=== PATIENT | female | born 1930 | race Caucasian/White ===

== ENCOUNTER → 2018-06-10 | Outpatient (CLI) | payer MEDICARE ==
[~2018-06-10] MED LIST: BENZ100C PO; BETA15CR5 TP; CARB15DR3 EACHEYE; CETI10TA24 PO; CHOL10002 PO; CRANBERRY PO; DESO15CR21 TP; FLUT16SP NAS; IPRA3AMP30 NEB; METH1TAB13 PO; MULT-709 PO; OLOP5DRO EACHEYE; OXYB5TAB7 PO; PRIM50TA PO; SIMV20TA3 PO; VIT C PO; [UNRECOGNIZED DRUG - CODE] PO; [UNRECOGNIZED DRUG - CODE] TP
[2018-06-10 15:21] LABS: BASOPHILS # (AUTO) 0.08 x10^3/uL (0-0.1); BASOPHILS % (AUTO) 1 % (0-1); EOSINOPHILS # (AUTO) 0.18 x10^3/uL (0-0.4); EOSINOPHILS % (AUTO) 3 % (1-7); LYMPHOCYTES # (AUTO) 1.76 x10^3/uL (1-3.4); LYMPHOCYTES % (AUTO) 28 % (22-44); MD NO; MEAN CORPUSCULAR HGB CONC 35.4 g/dL (32.4-35.8); MEAN CORPUSCULAR VOLUME 93.4 fL (80-100); MEAN PLATELET VOLUME 8.3 fL (7.4-10.4); MONOCYTES % (AUTO) 8 % (2-9); NEUTROPHILS # (AUTO) 3.73 x10^3/uL (1.8-6.8); NEUTROPHILS % (AUTO) 60 % (42-75); PLATELET COUNT 281 x10^3/uL (130-400); RED BLOOD COUNT 3.81 x10^6/uL (3.82-5.3); RED CELL DISTRIBUTION WIDTH 14.4 % (9.6-15.2)
[2018-06-10 15:31] LABS: ANION GAP 7 mmol/L (5-15); CALCIUM 8.1 mg/dL (8.5-10.1); CHLORIDE 111 mmol/L (98-107); CREATININE 1.03 mg/dL (0.55-1.02)
[2018-06-10 16:12] LABS: INTERNATIONAL NORMALIZED RATIO 0.95 (0.93-1.1); PROTHROMBIN TIME 9.9 Seconds (9.6-11.5)
== END | disposition home or self-care (01) ==
LOC: STAR 14:07
PROVIDERS: ATTEND Neurological Surgery
DX: Z01.818 Encounter for other preprocedural examination (principal); G25.0 Essential tremor; J44.9 Chronic obstructive pulmonary disease, unspecified; J98.4 Other disorders of lung
CPT/HCPCS: 36415; 71046; 80048; 85025; 85610; 85730; 93005

== ENCOUNTER 2018-06-18 06:32 | Day surgery (SDC) | payer MEDICARE ==
[~2018-06-18] VITALS: Ht 154.9 cm; Wt 75.8 kg
[2018-06-18] MEDS ORDERED: BACITRACIN 50,000 UNIT ONE (06:49)
[2018-06-18] MEDS ORDERED: THROMBIN 5,000 UNIT VIAL TP ONE (06:49)
[2018-06-18] MEDS ORDERED: EPINEPHRINE 1 MG/ML, 1ML ONE (06:49)
[2018-06-18] MEDS ORDERED: BUPIVACAINE/PF 0.5% ONE (06:49)
[2018-06-18] MEDS ORDERED: BACITRACIN OINT 500U/GM, 15 GM ONE (06:50)
[2018-06-18] MEDS ORDERED: LACTATED RINGERS 1,000 ML IV SCH (07:02)
[2018-06-18 07:03] VITALS: BP 151/72
[2018-06-18] MEDS ORDERED: LIDOCAINE-MPF 1%, 2ML INFIL ONE (07:30)
[2018-06-18] MEDS ORDERED: FENTANYL PF 100 MCG/2ML ONE (07:55)
[2018-06-18] MEDS ORDERED: PROPOFOL 10 MG/ML, 20ML ONE (07:57)
[2018-06-18] MEDS ORDERED: CEFAZOLIN 1,000 MG ONE (07:57)
[2018-06-18] MEDS ORDERED: MEPERIDINE/PF 25MG/0.5ML IVPush PRN (09:00)
[2018-06-18] MEDS ORDERED: HYDROmorphone 1 MG/ML, 1ML IV PRN (09:00)
[2018-06-18] MEDS ORDERED: OXYcodone 5 MG/5 ML ORAL.SOL UDC PO PRN (09:00)
[2018-06-18] MEDS ORDERED: LABETALOL 5MG/ML, 20ML IV PRN (09:00)
[2018-06-18] MEDS ORDERED: ONDANSETRON 2MG/ML, 2ML IV PRN (09:00)
[2018-06-18] MEDS ORDERED: ACETAMINOPHEN 325 MG TABLET PO PRN (09:00)
[2018-06-18] MEDS ORDERED: FENTANYL PF 100 MCG/2ML IV PRN (09:00)
== END 2018-06-18 11:35 | disposition home or self-care (01) ==
LOC: OUT 06:32
PROVIDERS: ATTEND Neurological Surgery
DX: Z45.49 Encounter for adjustment and management of other implanted nervous system device (principal); G25.0 Essential tremor; G20 Parkinson's disease; J44.9 Chronic obstructive pulmonary disease, unspecified; Z88.1 Allergy status to other antibiotic agents; Z88.8 Allergy status to other drugs, medicaments and biological substances; Z98.890 Other specified postprocedural states; Z79.899 Other long term (current) drug therapy; Z87.891 Personal history of nicotine dependence
CPT/HCPCS: 36415; 61886; 86850; 86900; C1767; J0171; J0690; J2704; J3010; J3490; J7120